=== PATIENT | male | born 1940 | race Caucasian/White ===

== ENCOUNTER → 2017-09-15 | Outpatient (CLI) | payer BC, MEDICARE | LOC: LAB 11:56 | PROVIDERS: Internal Medicine Hematology & Oncology | DX: C61 Malignant neoplasm of prostate (principal) ==

== ENCOUNTER 2018-10-18 11:25 | Emergency (ER) | payer BC, MEDICARE ==
[~2018-10-18] VITALS: Ht 170.2 cm; Wt 69.5 kg
[2018-10-18 12:31] LABS: HEMATOCRIT 40.8 % (42.0-52.0); HEMOGLOBIN 13.7 g/dL (13.5-18.0); MEAN CELL VOLUME 91 fl (78-100); MEAN CORPUSCULAR HEMOGLOBIN 31 pg (27-31); MEAN CORPUSCULAR HGB CONC 34 g/dL (33-37); MEAN PLATELET VOLUME 8.9 fl (7.4-10.4); PLATELET COUNT 378 K/mm3 (130-400); RED BLOOD COUNT 4.49 M/mm3 (4.20-5.60); RED CELL DISTRIBUTION WIDTH 13.4 % (11.5-14.5); WHITE BLOOD COUNT 11.6 K/mm3 (4.8-10.8)
[2018-10-18] MEDS ORDERED: PROAIR HFA0.09 MG/AC IH (12:33)
[2018-10-18] MEDS ORDERED: AMLODIPINE BESYL5 MG PO (12:33)
[2018-10-18] MEDS ORDERED: FLUTICASON0.05 MG/AC NS (12:34)
[2018-10-18] MEDS ORDERED: NITROSTAT0.4 M1 SL (12:34)
[2018-10-18 12:45] LABS: LYMPHOCYTE 10 % (20-51); MONOCYTE 12 % (3-10); NEUTROPHILS 78 % (42-75)
[2018-10-18 12:46] LABS: ALBUMIN 3.8 g/dL (3.5-5.0); POTASSIUM 4.4 mmol/L (3.6-5.0); TOTAL BILIRUBIN 0.4 mg/dL (0.2-1.3)
[2018-10-18 12:50] LABS: TROPONIN-I < 0.03 ng/mL (0.00-0.06)
[2018-10-18 13:33] VITALS: BP 139/86
[2018-10-18] MEDS ORDERED: MULTI-VITAMINS1 TA1 PO (17:30)
== END 2018-10-18 13:34 | disposition other institution (70) ==
LOC: ED 11:25
PROVIDERS: Family Medicine
DX: J44.1 Chronic obstructive pulmonary disease with (acute) exacerbation (principal); R09.02 Hypoxemia; I25.10 Atherosclerotic heart disease of native coronary artery without angina pectoris; I10 Essential (primary) hypertension; F17.210 Nicotine dependence, cigarettes, uncomplicated; Z86.73 Personal history of transient ischemic attack (TIA), and cerebral infarction without residual deficits; Z86.12 Personal history of poliomyelitis; Z90.79 Acquired absence of other genital organ(s)

== ENCOUNTER 2018-10-18 13:20 | Inpatient (IN) | payer BC, MEDICARE ==
[~2018-10-18] VITALS: Ht 170.2 cm; Wt 66.6 kg
[~2018-10-18 13:20] MED LIST: AMLODIPINE BESYL5 MG PO; FLUTICASON0.05 MG/AC NS; NITROSTAT0.4 M1 SL; PROAIR HFA0.09 MG/AC IH
[2018-10-18 13:50] VITALS: BP 139/86
[2018-10-18 15:00] VITALS: BP 152/78
[2018-10-18 16:05] VITALS: BP 155/92
[2018-10-18] MEDS ORDERED: MULTI-VITAMINS1 TA1 PO (17:30)
[2018-10-18 18:06] VITALS: BP 151/76
[2018-10-18 22:28] VITALS: BP 141/78
[2018-10-19 02:55] VITALS: BP 147/87
[2018-10-19 06:06] VITALS: BP 162/83
[2018-10-19 11:00] VITALS: BP 128/70
[2018-10-19 14:50] VITALS: BP 148/68
[2018-10-19 18:22] VITALS: BP 145/74
[2018-10-19 23:11] VITALS: BP 151/67
[2018-10-20 03:16] VITALS: BP 155/80
[2018-10-20 06:20] VITALS: BP 170/83
[2018-10-20 11:01] VITALS: BP 142/73
[2018-10-20 14:47] VITALS: BP 153/82
[2018-10-20 18:36] VITALS: BP 166/82
[2018-10-20 23:09] VITALS: BP 165/81
[2018-10-21 02:31] VITALS: BP 150/73
[2018-10-21 06:23] VITALS: BP 169/88
[2018-10-21 11:00] VITALS: BP 162/78
[2018-10-21] MEDS ORDERED: LIPITOR 10M10 MG/TAB PO (11:47)
[2018-10-21] MEDS ORDERED: SYMBICORT1 AE3 IH (11:47)
[2018-10-21] MEDS ORDERED: MORGIDOX 2X100100 MG PO (11:48)
[2018-10-21] MEDS ORDERED: PREDNISONE20 M1 PO (11:50)
[2018-10-21] MEDS ORDERED: ADULT ASPIRIN81 MG PO (11:54)
== END 2018-10-21 14:50 | disposition home or self-care (01) | DRG 192 ==
LOC: MED/SURG 13:20
PROVIDERS: ADMIT Family Medicine
DX: J44.1 Chronic obstructive pulmonary disease with (acute) exacerbation (principal); I10 Essential (primary) hypertension; I25.10 Atherosclerotic heart disease of native coronary artery without angina pectoris; E78.5 Hyperlipidemia, unspecified; Z86.73 Personal history of transient ischemic attack (TIA), and cerebral infarction without residual deficits; Z86.12 Personal history of poliomyelitis; Z95.5 Presence of coronary angioplasty implant and graft; F17.210 Nicotine dependence, cigarettes, uncomplicated
CPT/HCPCS: A4216; J0696; J1650; J2930; J7050

== ENCOUNTER → 2018-11-05 | Outpatient (CLI) | payer BC, MEDICARE ==
[2018-10-21 11:00] VITALS: BP 162/78
[~2018-11-05] MED LIST changes: +ADULT ASPIRIN81 MG PO; +LIPITOR 10M10 MG/TAB PO; +MORGIDOX 2X100100 MG PO; +MULTI-VITAMINS1 TA1 PO; +PREDNISONE20 M1 PO; +SYMBICORT1 AE3 IH
== END ==
LOC: LAB 11:46
DX: C61 Malignant neoplasm of prostate (principal)